=== PATIENT | female | born 1935 | race Caucasian/White ===

== ENCOUNTER → 2017-03-30 14:45 | Outpatient (CLI) | payer MEDICARE, OTHER ==
[2015-09-24 14:32] VITALS: BMI 22.5
[~2017-03-30 14:45] MED LIST: DIOVAN80 MG PO; NAPROSYN500 MG PO; NEXIUM20 MG PO; PREDNISONE20 MG PO; ZOCOR10 MG PO
== END | disposition home or self-care (01) ==
LOC: D.MRI 14:45
DX: M54.2 Cervicalgia (principal); M79.602 Pain in left arm

== ENCOUNTER → 2017-08-18 19:30 | Outpatient (CLI) | payer MEDICARE, OTHER ==
[2015-09-24 14:32] VITALS: BMI 22.5
== END | disposition home or self-care (01) ==
LOC: D.MAMMO 11:15
DX: Z12.31 Encounter for screening mammogram for malignant neoplasm of breast (principal)

== ENCOUNTER 2017-11-19 11:51 | Inpatient (IN) | payer MEDICARE, OTHER ==
[~2017-11-19] VITALS: Ht 160 cm; Wt 56.7 kg
[2017-11-19] VITALS (7 sets, daily range): BP systolic 137–155; BP diastolic 68–87
--- NOTE | ~2017-11-19 | MORECARE ---
CASE MANAGEMENT DISCHARGE SUMMARY PATIENT: CLARITA HENDERSON UNIT: [id number] ADM DATE: 11/19/17 AGE: 82 : 31 SEX: F ROOM/BED: D.2231 AUTHOR: CASE, HOME HEALTH RN PHYSICIAN: REFERRING PHYSICIAN: BRODY HENDERSON MD DATE OF SERVICE: 11/19/17 Discharge Plan Patient Name: CLARITA HENDERSON Facility: [facility]:[place] : 1935 Planned Disposition: Home with Home Health Anticipated Discharge Date: Discharge Date: Expected LOS: Initial Reviewer: [email or web address] Initial Review Date: 11/19/2017 Generated: 11/24/17 2:06 pm Coverage Notice Reviewer: [email or web address] Daria Tripathi Notice Issued Date-Time: 11/24/2017 13:00 Notice Type: IM Discharge Notice Notice Delivered To: Patient Relationship to Patient: [employer] Name: Delivery Method: HAND - Hand Delivered Emily Days: Prior Verbal Notification: Recipient Understood Notice: Yes Recipient Signature: Yes Med Rec Note Co-signed by Attending: Coverage Notice Comment: Reviewer: [email or web address] Daria Tripathi Notice Issued Date-Time: 11/24/2017 13:05 Notice Type: Patient Choice Letter Notice Delivered To: Patient Relationship to Patient: [employer] Name: FERNANDO Delivery Method: - Emily Days: Prior Verbal Notification: Recipient Understood Notice: Recipient Signature: Med Rec Note Co-signed by Attending: Coverage Notice Comment: Patient Name: CLARITA HENDERSON Page [phone] All edits/amendments must be made on the electronic document DICTATION DATE: 11/24/17 1306 SUGAR REPROCESS OPERATOR HEAD: 11/24/17 1306 RPT#: [id number] DC DATE: STATUS: ADM IN [facility] [address] [place] [address] END OF REPORT
[2017-11-19 13:42] LABS: BASOPHILS 0.2 % (0-2); EOSINOPHILS 0.2 % (0-7); HEMATOCRIT 40.5 % (36.0-48.0); HEMOGLOBIN 13.3 g/dL (12-16); IMMATURE GRANULOCYTES 0.3 % (0-5); MCH 29.2 pg (26.0-34.0); MCHC 32.8 g/dL (31.0-37.0); MEAN PLATELET VOLUME 10.9 fL (7.4-10.4); MONOCYTES 16.6 % (2-11); NEUTROPHILS 59.7 % (40-80); RBC 4.55 10x6/uL (4.00-5.40); RDW 13.6 % (11.5-14.5); WBC 6.2 10x3/uL (4.8-10.8)
[2017-11-19 13:49] LABS: PLATELET COUNT 134 10x3/uL (130-400)
[2017-11-19 13:56] LABS: ALBUMIN 3.8 g/dL (3.4-5.0); ALKALINE PHOSPHATASE 60 U/L (46-116); ALT (SGPT) 16 U/L (10-68); BILIRUBIN - TOTAL 0.39 mg/dL (0.2-1.3); CALC OSMOLALITY 272 mosm/kg (275-300); CALCIUM 9.1 mg/dL (8.5-10.1); CARBON DIOXIDE 25.7 mmol/L (21.0-32.0); CHLORIDE - SERUM 100 mmol/L (98-107); CREATININE - SERUM 0.8 mg/dL (0.6-1.3); GLUCOSE 109 mg/dL (74-106); POTASSIUM - SERUM 4.3 mmol/L (3.5-5.1); PROTEIN - SERUM 7.4 g/dL (6.4-8.2); SODIUM 135 mmol/L (136-145); UREA NITROGEN 17 mg/dL (7-18); eGFR NON AFRICAN AMERICAN 72 mL/min (90-120)
[2017-11-19 14:07] LABS: CKMB 3.2 U/L (0.0-3.6); CREATINE KINASE 347 UL (21-215); PRO BNP 533 pg/mL (0-450)
[2017-11-19 14:11] LABS: C-REACTIVE PROTEIN < 0.2 mg/dL (0.0-0.9); TROPONIN-I < 0.017 ng/mL (0.000-0.060)
[2017-11-19 14:36] LABS: APPEARANCE CLEAR (CLEAR); BILIRUBIN NEGATIVE (NEGATIVE); COLOR YELLOW (YELLOW); GLUCOSE NEGATIVE (NEGATIVE); KETONE SMALL mg/dL (NEGATIVE); NITRITE NEGATIVE (NEGATIVE); PROTEIN 1+ mg/dL (NEGATIVE); SPECIFIC GRAVITY 1.015 (1.005-1.020); UROBILINOGEN NORMAL (NORMAL)
[2017-11-19 14:37] LABS: BACTERIA FEW /hpf (NONE SEEN); EPITHELIAL CELLS 0-5 /hpf (0-5); WHITE CELLS - URINE 0-5 /hpf (0-5)
[2017-11-19 18:26] LABS: THYROID STIMULATING HORMONE 0.42 uIU/mL (0.36-3.74)
[2017-11-20] VITALS (7 sets, daily range): BP systolic 116–139; BP diastolic 55–70; BMI 22.1
[2017-11-20 11:40] LABS: HEMATOCRIT 36.2 % (36.0-48.0); HEMOGLOBIN 12.2 g/dL (12-16); LYMPHOCYTES 32.2 % (15-50); MCH 29.7 pg (26.0-34.0); MCHC 33.7 g/dL (31.0-37.0); MCV 88.1 fL (80.0-100.0); MEAN PLATELET VOLUME 9.4 fL (7.4-10.4); NEUTROPHILS 52.1 % (40-80); PLATELET COUNT 253 10x3/uL (130-400); RBC 4.11 10x6/uL (4.00-5.40); RDW 13.6 % (11.5-14.5); WBC 4.7 10x3/uL (4.8-10.8)
[2017-11-20 12:05] LABS: ALBUMIN 3.2 g/dL (3.4-5.0); BILIRUBIN - TOTAL 0.26 mg/dL (0.2-1.3); CALCIUM 8.6 mg/dL (8.5-10.1); CARBON DIOXIDE 28.3 mmol/L (21.0-32.0); CREATININE - SERUM 0.8 mg/dL (0.6-1.3); PROTEIN - SERUM 6.9 g/dL (6.4-8.2)
[2017-11-20 12:06] LABS: ANION GAP 9.3 mmol/L (8-16); POTASSIUM - SERUM 3.6 mmol/L (3.5-5.1)
[2017-11-20 16:56] LABS: ERYTHROCYTE SEDIMENTATION RATE 11 mm/hr (0-30)
[2017-11-21 04:08] VITALS: BP 115/59
[2017-11-21 06:33] LABS: BASOPHILS 0.2 % (0-2); EOSINOPHILS 0 % (0-7); HEMATOCRIT 35.5 % (36.0-48.0); HEMOGLOBIN 11.5 g/dL (12-16); LYMPHOCYTES 22.2 % (15-50); MCH 28.4 pg (26.0-34.0); MCHC 32.4 g/dL (31.0-37.0); MCV 87.7 fL (80.0-100.0); MONOCYTES 5.8 % (2-11); NEUTROPHILS 71.8 % (40-80); PLATELET COUNT 297 10x3/uL (130-400); RBC 4.05 10x6/uL (4.00-5.40); RDW 13.6 % (11.5-14.5); WBC 4.1 10x3/uL (4.8-10.8)
[2017-11-21 07:07] LABS: ANION GAP 11.1 mmol/L (8-16); BILIRUBIN - TOTAL 0.24 mg/dL (0.2-1.3); CALCIUM 8.3 mg/dL (8.5-10.1); CARBON DIOXIDE 27.2 mmol/L (21.0-32.0); CREATININE - SERUM 0.8 mg/dL (0.6-1.3); POTASSIUM - SERUM 4.3 mmol/L (3.5-5.1); PROTEIN - SERUM 6.2 g/dL (6.4-8.2)
[2017-11-21 08:48] VITALS: BP 117/48
[2017-11-21 12:58] VITALS: BP 153/81
[2017-11-21 13:32] VITALS: Ht 160 cm; Wt 56.7 kg
[2017-11-21 16:27] VITALS: BP 140/71
[2017-11-21 21:32] VITALS: BP 120/60
[2017-11-22 04:13] VITALS: BP 128/68
[2017-11-22 06:27] LABS: BASOPHILS 0.3 % (0-2); EOSINOPHILS 2.8 % (0-7); HEMATOCRIT 40.2 % (36.0-48.0); HEMOGLOBIN 13.3 g/dL (12-16); IMMATURE GRANULOCYTES 0.2 % (0-5); LYMPHOCYTES 41.3 % (15-50); MCH 28.9 pg (26.0-34.0); MCHC 33.1 g/dL (31.0-37.0); MCV 87.2 fL (80.0-100.0); MEAN PLATELET VOLUME 10.5 fL (7.4-10.4); MONOCYTES 9.8 % (2-11); NEUTROPHILS 45.6 % (40-80); PLATELET COUNT 283 10x3/uL (130-400); RBC 4.61 10x6/uL (4.00-5.40); RDW 13.9 % (11.5-14.5)
[2017-11-22 06:31] LABS: WBC 6.3 10x3/uL (4.8-10.8)
[2017-11-22 06:38] LABS: ALBUMIN 3.1 g/dL (3.4-5.0); ALKALINE PHOSPHATASE 57 U/L (46-116); BILIRUBIN - TOTAL 0.31 mg/dL (0.2-1.3); CALC OSMOLALITY 277 mosm/kg (275-300); CALCIUM 8.6 mg/dL (8.5-10.1); CARBON DIOXIDE 22.1 mmol/L (21.0-32.0); CHLORIDE - SERUM 104 mmol/L (98-107); CREATININE - SERUM 0.7 mg/dL (0.6-1.3); GLUCOSE 80 mg/dL (74-106); POTASSIUM - SERUM 4.5 mmol/L (3.5-5.1); PROTEIN - SERUM 6.6 g/dL (6.4-8.2); SODIUM 138 mmol/L (136-145); UREA NITROGEN 22 mg/dL (7-18); eGFR NON AFRICAN AMERICAN 84 mL/min (90-120)
[2017-11-22 06:40] LABS: ALT (SGPT) 31 U/L (10-68)
[2017-11-22 09:28] VITALS: BP 124/62
[2017-11-22 16:50] VITALS: BP 132/65
[2017-11-22 21:19] VITALS: BP 141/76
[2017-11-23] VITALS (7 sets, daily range): BP systolic 139–158; BP diastolic 68–79
[2017-11-23 07:02] LABS: BASOPHILS 0.4 % (0-2); EOSINOPHILS 2.4 % (0-7); HEMATOCRIT 39.2 % (36.0-48.0); IMMATURE GRANULOCYTES 0.4 % (0-5); MCH 29.1 pg (26.0-34.0); MCHC 33.2 g/dL (31.0-37.0); MCV 87.7 fL (80.0-100.0); MONOCYTES 10.4 % (2-11); NEUTROPHILS 53.4 % (40-80); RBC 4.47 10x6/uL (4.00-5.40); WBC 5.5 10x3/uL (4.8-10.8)
[2017-11-23 07:03] LABS: PLATELET COUNT 359 10x3/uL (130-400)
[2017-11-23 07:22] LABS: ALBUMIN 3.1 g/dL (3.4-5.0); ANION GAP 11.6 mmol/L (8-16); BILIRUBIN - TOTAL 0.36 mg/dL (0.2-1.3); CALCIUM 8.7 mg/dL (8.5-10.1); CARBON DIOXIDE 27.5 mmol/L (21.0-32.0); CREATININE - SERUM 0.8 mg/dL (0.6-1.3); POTASSIUM - SERUM 4.1 mmol/L (3.5-5.1); PROTEIN - SERUM 6.3 g/dL (6.4-8.2)
[2017-11-24 04:00] VITALS: BP 112/80; BP 128/87
[2017-11-24 06:29] LABS: BASOPHILS 0.2 % (0-2); EOSINOPHILS 0.2 % (0-7); HEMATOCRIT 35.4 % (36.0-48.0); HEMOGLOBIN 11.8 g/dL (12-16); IMMATURE GRANULOCYTES 0.2 % (0-5); LYMPHOCYTES 23.6 % (15-50); MCH 29.1 pg (26.0-34.0); MCHC 33.3 g/dL (31.0-37.0); MCV 87.2 fL (80.0-100.0); MEAN PLATELET VOLUME 9.8 fL (7.4-10.4); MONOCYTES 11.6 % (2-11); NEUTROPHILS 64.2 % (40-80); PLATELET COUNT 357 10x3/uL (130-400); RBC 4.06 10x6/uL (4.00-5.40); WBC 5.8 10x3/uL (4.8-10.8)
[2017-11-24 06:47] LABS: ANION GAP 11.3 mmol/L (8-16); CALCIUM 8.8 mg/dL (8.5-10.1); CARBON DIOXIDE 25.4 mmol/L (21.0-32.0); CREATININE - SERUM 0.8 mg/dL (0.6-1.3); POTASSIUM - SERUM 3.7 mmol/L (3.5-5.1)
[2017-11-24 09:00] VITALS: BP 137/83
[2017-11-24 10:21] LABS: F. TULARENSIS - IGG Negative (()); F. TULARENSIS - IGM Negative (())
[2017-11-24] MEDS ORDERED: PREDNISONE10 MG PO (11:54)
[2017-11-24 12:17] VITALS: BP 124/69
[2017-11-24 13:19] LABS: EHRLICHIA CHAFF IGG Negative (Neg:<1:64); EHRLICHIA CHAFF IGM Negative (Neg:<1:20); HGE IGG TITER Negative (Neg:<1:64); HGE IGM TITER Negative (Neg:<1:20)
[2017-11-24 16:14] LABS: RMSF IGM 0.32 index (0.00-0.89)
== END 2017-11-24 14:05 | disposition home health service (06) | DRG 547 ==
LOC: D.ER 11:51 → D.EDHOLD 18:25 → D.MS 18:25
PROVIDERS: Emergency Medicine; Family Medicine
DX: M31.6 Other giant cell arteritis (principal); R27.0 Ataxia, unspecified; M47.892 Other spondylosis, cervical region; R79.89 Other specified abnormal findings of blood chemistry; W06.XXXA Fall from bed, initial encounter

== ENCOUNTER 2017-11-30 17:21 | Observation (INO) | payer MEDICARE, OTHER ==
[~2017-11-30] VITALS: Ht 160 cm; Wt 56.7 kg
[~2017-11-30 17:21] MED LIST changes: +PREDNISONE10 MG PO
[2017-11-30 17:41] LABS: APPEARANCE CLEAR (CLEAR); BILIRUBIN NEGATIVE (NEGATIVE); COLOR YELLOW (YELLOW); GLUCOSE NEGATIVE (NEGATIVE); KETONE NEGATIVE (NEGATIVE); NITRITE NEGATIVE (NEGATIVE); PROTEIN NEGATIVE (NEGATIVE); SPECIFIC GRAVITY 1.015 (1.005-1.020); UROBILINOGEN NORMAL (NORMAL)
[2017-11-30 17:44] LABS: BACTERIA FEW /hpf (NONE SEEN); EPITHELIAL CELLS 0-5 /hpf (0-5); RED CELLS - URINE 0-5 /hpf (0-5)
[2017-11-30 18:22] LABS: BASOPHILS 0.4 % (0-2); EOSINOPHILS 3.9 % (0-7); HEMATOCRIT 37.4 % (36.0-48.0); HEMOGLOBIN 12.3 g/dL (12-16); IMMATURE GRANULOCYTES 0.2 % (0-5); LYMPHOCYTES 32.1 % (15-50); MCH 29.6 pg (26.0-34.0); MCHC 32.9 g/dL (31.0-37.0); MCV 89.9 fL (80.0-100.0); MEAN PLATELET VOLUME 9.7 fL (7.4-10.4); MONOCYTES 16.4 % (2-11); PLATELET COUNT 327 10x3/uL (130-400); RBC 4.16 10x6/uL (4.00-5.40); RDW 14.4 % (11.5-14.5); WBC 4.6 10x3/uL (4.8-10.8)
[2017-11-30 18:34] LABS: D-DIMER-QUANTITATIVE 0.9 ug/mLFEU (0.20-0.54)
[2017-11-30 18:40] LABS: INR 0.87 (0.85-1.17); PROTIME 11.5 SECONDS (11.6-15.0)
[2017-11-30 18:45] LABS: ALBUMIN 3.5 g/dL (3.4-5.0); ALKALINE PHOSPHATASE 62 U/L (46-116); ALT (SGPT) 22 U/L (10-68); BILIRUBIN - TOTAL 0.17 mg/dL (0.2-1.3); CALC OSMOLALITY 284 mosm/kg (275-300); CALCIUM 8.9 mg/dL (8.5-10.1); CARBON DIOXIDE 27.9 mmol/L (21.0-32.0); CHLORIDE - SERUM 104 mmol/L (98-107); CREATININE - SERUM 0.9 mg/dL (0.6-1.3); GLUCOSE 114 mg/dL (74-106); POTASSIUM - SERUM 3.7 mmol/L (3.5-5.1); SODIUM 141 mmol/L (136-145); UREA NITROGEN 21 mg/dL (7-18); eGFR NON AFRICAN AMERICAN 63 mL/min (90-120)
[2017-11-30 18:56] LABS: CKMB 1.1 U/L (0.0-3.6); CREATINE KINASE 39 UL (21-215); MAGNESIUM - SERUM 2.3 mg/dL (1.8-2.4); TROPONIN-I < 0.017 ng/mL (0.000-0.060)
[2017-11-30 19:30] VITALS: BP 181/86
[2017-11-30 20:30] VITALS: BP 149/79
[2017-11-30 21:30] VITALS: BP 130/72
[2017-11-30 22:30] VITALS: BP 141/75
[2017-12-01] VITALS (7 sets, daily range): BP systolic 102–137; BP diastolic 52–78; BMI 22.1
[2017-12-01] MEDS ORDERED: ACETAMINOPHEN325 MG PO (14:19)
[2017-12-01] MEDS ORDERED: ESGIC TABLET1 TAB PO (14:20)
[2017-12-01] MEDS ORDERED: BACLOFEN10 MG PO (14:21)
[2017-12-02 02:11] VITALS: BP 124/72
[2017-12-02 05:49] LABS: BASOPHILS 0.4 % (0-2); EOSINOPHILS 3.3 % (0-7); HEMOGLOBIN 11.9 g/dL (12-16); IMMATURE GRANULOCYTES 0.2 % (0-5); LYMPHOCYTES 27.4 % (15-50); MCH 28.8 pg (26.0-34.0); MCHC 32.2 g/dL (31.0-37.0); MCV 89.6 fL (80.0-100.0); MEAN PLATELET VOLUME 10.2 fL (7.4-10.4); MONOCYTES 13.3 % (2-11); NEUTROPHILS 55.4 % (40-80); PLATELET COUNT 291 10x3/uL (130-400); RBC 4.13 10x6/uL (4.00-5.40); RDW 14.4 % (11.5-14.5); WBC 5.1 10x3/uL (4.8-10.8)
[2017-12-02 06:22] LABS: ALBUMIN 3.1 g/dL (3.4-5.0); ANION GAP 11.5 mmol/L (8-16); BILIRUBIN - TOTAL 0.28 mg/dL (0.2-1.3); CALCIUM 8.4 mg/dL (8.5-10.1); CARBON DIOXIDE 25.6 mmol/L (21.0-32.0); CHOL - HDL RATIO 3.8 ratio (2.3-4.1); CREATININE - SERUM 0.8 mg/dL (0.6-1.3); LDL-HDL RATIO 2.2 ratio (1.5-3.5); POTASSIUM - SERUM 4.1 mmol/L (3.5-5.1); PROTEIN - SERUM 6.2 g/dL (6.4-8.2)
[2017-12-02 06:28] VITALS: BP 128/68
[2017-12-02 07:40] VITALS: BP 151/75
[2017-12-02 10:57] VITALS: Ht 160 cm; Wt 56.7 kg
[2017-12-02 11:55] VITALS: BP 139/76
[2017-12-02] MEDS ORDERED: FAMVIR500 MG PO (12:04)
[2017-12-02] MEDS ORDERED: ECOTRIN325 MG PO (12:04)
[2017-12-02] MEDS ORDERED: OMNICEF300 MG PO (12:05)
== END 2017-12-02 15:55 | disposition home or self-care (01) ==
LOC: D.ER 17:21 → D.EDHOLD 20:30 → OBSVTIME 20:30 → D.M2 12-01 12:59
PROVIDERS: Family Medicine; Family Medicine Adult Medicine
DX: G45.9 Transient cerebral ischemic attack, unspecified (principal); G81.91 Hemiplegia, unspecified affecting right dominant side; B02.9 Zoster without complications; N39.0 Urinary tract infection, site not specified; K21.9 Gastro-esophageal reflux disease without esophagitis; R94.31 Abnormal electrocardiogram [ECG] [EKG]; R53.1 Weakness; R47.81 Slurred speech

== ENCOUNTER 2018-01-01 19:14 | Emergency (ER) | payer MEDICARE, OTHER ==
[~2018-01-01] VITALS: Ht 160 cm; Wt 55.3 kg
[~2018-01-01 19:14] MED LIST changes: +ACETAMINOPHEN325 MG PO; +BACLOFEN10 MG PO; +ECOTRIN325 MG PO; +ESGIC TABLET1 TAB PO; +FAMVIR500 MG PO; +OMNICEF300 MG PO
[2018-01-01 19:39] VITALS: Ht 160 cm; Wt 55.3 kg
[2018-01-01] MEDS ORDERED: BAYER CHEWABLE81 MG PO (19:42)
[2018-01-01] MEDS ORDERED: ACETAMINOPHEN325 MG PO (19:44)
[2018-01-01 23:37] VITALS: BP 155/80
== END 2018-01-01 23:53 | disposition other institution (70) ==
LOC: D.ER 19:14
DX: S12.090A Other displaced fracture of first cervical vertebra, initial encounter for closed fracture (principal); S12.391A Other nondisplaced fracture of fourth cervical vertebra, initial encounter for closed fracture; W18.30XA Fall on same level, unspecified, initial encounter; Y93.89 Activity, other specified; Y92.019 Unspecified place in single-family (private) house as the place of occurrence of the external cause; R51 Headache; Z86.73 Personal history of transient ischemic attack (TIA), and cerebral infarction without residual deficits

== ENCOUNTER 2018-08-31 13:15 | Emergency (ER) | payer MEDICARE, OTHER ==
[~2018-08-31] VITALS: Ht 160 cm; Wt 54.5 kg
[~2018-08-31 13:15] MED LIST changes: +BAYER CHEWABLE81 MG PO
[2018-08-31 13:19] VITALS: Ht 160 cm; Wt 54.5 kg
[2018-08-31 14:08] LABS: BASOPHILS 0.4 % (0-2); EOSINOPHILS 0.6 % (0-7); HEMATOCRIT 39.3 % (36.0-48.0); HEMOGLOBIN 12.8 g/dL (12-16); IMMATURE GRANULOCYTES 0.2 % (0-5); LYMPHOCYTES 25.6 % (15-50); MCH 29.3 pg (26.0-34.0); MCHC 32.6 g/dL (31.0-37.0); MCV 89.9 fL (80.0-100.0); MEAN PLATELET VOLUME 9.6 fL (7.4-10.4); MONOCYTES 12.9 % (2-11); NEUTROPHILS 60.3 % (40-80); PLATELET COUNT 242 10x3/uL (130-400); RBC 4.37 10x6/uL (4.00-5.40); WBC 4.7 10x3/uL (4.8-10.8)
[2018-08-31 14:26] LABS: ALBUMIN 3.7 g/dL (3.4-5.0); ALKALINE PHOSPHATASE 60 U/L (46-116); ALT (SGPT) 28 U/L (10-68); BILIRUBIN - TOTAL 0.32 mg/dL (0.2-1.3); CALC OSMOLALITY 286 mosm/kg (275-300); CALCIUM 8.7 mg/dL (8.5-10.1); CHLORIDE - SERUM 108 mmol/L (98-107); GLUCOSE 112 mg/dL (74-106); POTASSIUM - SERUM 3.8 mmol/L (3.5-5.1); PROTEIN - SERUM 7.4 g/dL (6.4-8.2); SODIUM 142 mmol/L (136-145); UREA NITROGEN 20 mg/dL (7-18); eGFR NON AFRICAN AMERICAN 56 mL/min (90-120)
[2018-08-31 14:32] LABS: CKMB 2.1 U/L (0.0-3.6); CREATINE KINASE 76 UL (21-215); MAGNESIUM - SERUM 2.2 mg/dL (1.8-2.4); THYROID STIMULATING HORMONE 0.88 uIU/mL (0.36-3.74)
[2018-08-31 14:33] LABS: TROPONIN-I < 0.017 ng/mL (0.000-0.060)
[2018-08-31 16:14] LABS: APTT 25.4 SECONDS (22.8-39.4); INR 0.89 (0.85-1.17); PROTIME 11.9 SECONDS (11.6-15.0)
[2018-08-31 16:54] VITALS: BP 151/81
== END 2018-08-31 16:56 | disposition home or self-care (01) ==
LOC: D.ER 13:15
PROVIDERS: Family Medicine
DX: M62.830 Muscle spasm of back (principal); T14.8XXA Other injury of unspecified body region, initial encounter; X58.XXXA Exposure to other specified factors, initial encounter; Y92.89 Other specified places as the place of occurrence of the external cause

== ENCOUNTER 2020-09-13 09:31 | Inpatient (IN) | payer MEDICARE, OTHER ==
[~2020-09-13] VITALS: Ht 160 cm; Wt 56.4 kg
[2020-09-13 09:45] VITALS: BP 134/77
[2020-09-13 10:15] LABS: BASOPHILS 1.7 % (0-2); EOSINOPHILS 2.6 % (0-7); HEMATOCRIT 39.1 % (36.0-48.0); HEMOGLOBIN 12.6 g/dL (12-16); LYMPHOCYTES 31.8 % (15-50); MCH 27.8 pg (26.0-34.0); MCHC 32.3 g/dL (31.0-37.0); MCV 86.3 fL (80.0-100.0); MEAN PLATELET VOLUME 8.9 fL (7.4-10.4); MONOCYTES 16.7 % (2-11); NEUTROPHILS 47.2 % (40-80); RBC 4.54 10x6/uL (4.00-5.40); RDW 15.1 % (11.5-14.5); WBC 4.8 10x3/uL (4.8-10.8)
[2020-09-13 10:19] LABS: INR 0.95 (0.85-1.17); PROTIME 11.8 SECONDS (11.6-15.0)
[2020-09-13] MEDS ORDERED: PLAVIX75 MG PO (10:19)
[2020-09-13] MEDS ORDERED: ROPINIROLE HCL0.5 MG PO (10:20)
[2020-09-13] MEDS ORDERED: TRIAMTERENE-HC1 EAC3 (10:20)
[2020-09-13] MEDS ORDERED: PROTONIX FOR OR40 MG PT (10:20)
[2020-09-13 10:22] LABS: PLATELET COUNT 309 10x3/uL (130-400)
[2020-09-13 10:47] LABS: CALC OSMOLALITY 283 mosm/kg (275-300); CALCIUM 9.6 mg/dL (8.5-10.1); CHLORIDE - SERUM 105 mmol/L (98-107); GLUCOSE 97 mg/dL (74-106); POTASSIUM - SERUM 4.4 mmol/L (3.5-5.1); SODIUM 141 mmol/L (136-145); UREA NITROGEN 20 mg/dL (7-18); eGFR NON AFRICAN AMERICAN 55 mL/min (90-120)
[2020-09-13 11:04] LABS: ALBUMIN 3.6 g/dL (3.4-5.0); ALKALINE PHOSPHATASE 59 U/L (30-120); ALT (SGPT) 19 U/L (10-68); BILIRUBIN - TOTAL 0.33 mg/dL (0.2-1.3); CKMB 1.1 U/L (0.0-3.6); CREATINE KINASE 48 UL (21-215); MAGNESIUM - SERUM 2.4 mg/dL (1.8-2.4); PROTEIN - SERUM 7.3 g/dL (6.4-8.2)
[2020-09-13 11:05] LABS: TROPONIN-I < 0.017 ng/mL (0.000-0.060)
[2020-09-13 13:09] LABS: CKMB 1.2 U/L (0.0-3.6); CREATINE KINASE 50 UL (21-215); TROPONIN-I < 0.017 ng/mL (0.000-0.060)
[2020-09-13 14:43] VITALS: BP 134/77; Ht 160 cm; Wt 56.4 kg
[2020-09-13 15:56] VITALS: BP 122/52
[2020-09-13 18:44] LABS: CKMB 1.1 U/L (0.0-3.6); CREATINE KINASE 45 UL (21-215); TROPONIN-I < 0.017 ng/mL (0.000-0.060)
--- NOTE | 2020-09-13 19:15 | NUR ---
RECEIVED REPORT, WILL ASSUME CARE OF PT, WATCHING TV, DENIES ANY NEEDS AT THIS TIME, BED IS LOW, SRX2, CALL LIGHT IN REACH, WILL CONTINUE PLAN OF CARE
[2020-09-13 20:33] VITALS: BP 115/55
[2020-09-14 00:34] VITALS: BP 139/65
[2020-09-14 01:10] LABS: CKMB 0.6 U/L (0.0-3.6); CREATINE KINASE 42 UL (21-215); TROPONIN-I < 0.017 ng/mL (0.000-0.060)
[2020-09-14 06:03] VITALS: BP 136/59
[2020-09-14 06:09] LABS: EOSINOPHILS 2.8 % (0-7); HEMATOCRIT 36.9 % (36.0-48.0); HEMOGLOBIN 12.1 g/dL (12-16); LYMPHOCYTES 37.7 % (15-50); MCH 28.3 pg (26.0-34.0); MCHC 32.9 g/dL (31.0-37.0); MCV 86.1 fL (80.0-100.0); MEAN PLATELET VOLUME 8.5 fL (7.4-10.4); MONOCYTES 14.8 % (2-11); NEUTROPHILS 43.7 % (40-80); PLATELET COUNT 260 10x3/uL (130-400); RBC 4.29 10x6/uL (4.00-5.40); RDW 14.6 % (11.5-14.5); WBC 4.4 10x3/uL (4.8-10.8)
[2020-09-14 06:36] LABS: ALBUMIN 3.4 g/dL (3.4-5.0); ALKALINE PHOSPHATASE 55 U/L (30-120); ALT (SGPT) 17 U/L (10-68); BILIRUBIN - TOTAL 0.29 mg/dL (0.2-1.3); CALC OSMOLALITY 277 mosm/kg (275-300); CALCIUM 8.9 mg/dL (8.5-10.1); CARBON DIOXIDE 26.1 mmol/L (21.0-32.0); CHLORIDE - SERUM 103 mmol/L (98-107); CKMB 0.9 U/L (0.0-3.6); CREATINE KINASE 43 UL (21-215); CREATININE - SERUM 1.1 mg/dL (0.6-1.3); GLUCOSE 97 mg/dL (74-106); MAGNESIUM - SERUM 2.1 mg/dL (1.8-2.4); POTASSIUM - SERUM 4.4 mmol/L (3.5-5.1); SODIUM 137 mmol/L (136-145); TROPONIN-I < 0.017 ng/mL (0.000-0.060); UREA NITROGEN 25 mg/dL (7-18); eGFR NON AFRICAN AMERICAN 50 mL/min (90-120)
--- NOTE | 2020-09-14 07:20 | NUR ---
RECIEVE REPORT. ALERT AND ORIENTED X4. SITTING UP IN BED. SINUS RHYTHM 91 ON TELEMETRY. CONTINUE PLAN OF CARE AND SAFETY PRECAUTIONS.
[2020-09-14 08:00] VITALS: BP 146/76
[2020-09-14 12:00] VITALS: BP 103/58
[2020-09-14 16:00] VITALS: BP 117/66
--- NOTE | 2020-09-14 16:11 | NUR ---
ALERT AND ORIENTED X4. SITTING UP IN BED WATCHING TV. SINUS RHYTHM ON TELEMETRY. DENIES ANY NEEDS. CONTINUE PLAN OF CARE AND SAFETY PRECAUTIONS.
--- NOTE | 2020-09-14 19:30 | NUR ---
RECEIVED REPORT, WILL ASSUME CARE OF PT, SITTING IN CHAIR, DENIES ANY NEEDS AT THIS TIME, CALL LIGHT IN REACH, WILL CONTINUE PLAN OF CARE
[2020-09-14 21:00] VITALS: BP 142/48
[2020-09-15] VITALS (7 sets, daily range): BP systolic 121–145; BP diastolic 64–76
[2020-09-15 06:46] LABS: BASOPHILS 0.7 % (0-2); EOSINOPHILS 2.2 % (0-7); HEMATOCRIT 38.7 % (36.0-48.0); HEMOGLOBIN 12.8 g/dL (12-16); LYMPHOCYTES 33.6 % (15-50); MCH 28.2 pg (26.0-34.0); MCHC 32.9 g/dL (31.0-37.0); MCV 85.7 fL (80.0-100.0); MEAN PLATELET VOLUME 8.8 fL (7.4-10.4); MONOCYTES 13.3 % (2-11); NEUTROPHILS 50.2 % (40-80); PLATELET COUNT 288 10x3/uL (130-400); RBC 4.52 10x6/uL (4.00-5.40); RDW 14.5 % (11.5-14.5); WBC 4.5 10x3/uL (4.8-10.8)
[2020-09-15 07:52] LABS: ALBUMIN 3.5 g/dL (3.4-5.0); ANION GAP 17.3 mmol/L (8-16); BILIRUBIN - TOTAL 0.21 mg/dL (0.2-1.3); CALCIUM 9.9 mg/dL (8.5-10.1); CARBON DIOXIDE 24.2 mmol/L (21.0-32.0); MAGNESIUM - SERUM 2.1 mg/dL (1.8-2.4); POTASSIUM - SERUM 4.5 mmol/L (3.5-5.1); PROTEIN - SERUM 7.1 g/dL (6.4-8.2)
--- NOTE | 2020-09-15 10:32 | NUR ---
IV SITED TO LEFT HAND WITH 22 G X 1 STICK PER THIS NURSE. RIGHT FA IV REMOVED WITH CATH TIP INTACT.
--- NOTE | 2020-09-15 10:53 | NUR ---
COMPLETE BED LINEN CHANGED AND DATED.
--- NOTE | 2020-09-15 10:58 | NUR ---
I CALLED AND SPOKE TO ML IN THE [employer] WHO STATES THAT SHE IS HAVING AN ECHO, NOT HEART CATH.
--- NOTE | 2020-09-15 17:45 | NUR ---
NO COMPLAINTS AT THIS TIME, VISITING WITH FEMALE MEMBER IN ROOM.
--- NOTE | 2020-09-15 19:48 | NUR ---
RECIEVED UP IN BED WITH EYES OPEN AND TV ON. A/O X4. UP WITH ASSIST. DENIES ANY NEEDS AT THIS TIME.
[2020-09-16 04:00] VITALS: BP 130/66
[2020-09-16 05:15] LABS: BASOPHILS 1.1 % (0-2); EOSINOPHILS 1.8 % (0-7); HEMATOCRIT 37.8 % (36.0-48.0); HEMOGLOBIN 12.4 g/dL (12-16); LYMPHOCYTES 38.3 % (15-50); MCHC 32.9 g/dL (31.0-37.0); MCV 85.1 fL (80.0-100.0); MEAN PLATELET VOLUME 8.6 fL (7.4-10.4); MONOCYTES 12.8 % (2-11); PLATELET COUNT 279 10x3/uL (130-400); RBC 4.44 10x6/uL (4.00-5.40); RDW 14.4 % (11.5-14.5)
[2020-09-16 05:36] LABS: ALBUMIN 3.3 g/dL (3.4-5.0); ANION GAP 12.9 mmol/L (8-16); BILIRUBIN - TOTAL 0.19 mg/dL (0.2-1.3); CARBON DIOXIDE 23.8 mmol/L (21.0-32.0); CREATININE - SERUM 1.2 mg/dL (0.6-1.3); MAGNESIUM - SERUM 2.1 mg/dL (1.8-2.4); POTASSIUM - SERUM 4.7 mmol/L (3.5-5.1); PROTEIN - SERUM 6.8 g/dL (6.4-8.2)
--- NOTE | 2020-09-16 06:50 | NUR ---
RECIEVED BEDSIDE REPORT PATIENT SITTING UP IN CHAIR, NO CURRENT PAIN OR DISTRESS VOICED. RESP EVEN AND UNLABORED. NO O2 IN US3. IV TO LEFT HAND SALINE LOCKED.
[2020-09-16 08:00] VITALS: BP 120/64
--- NOTE | 2020-09-16 10:11 | NUR ---
PATIENT SITTING UP IN BED. NO CURRENT PAIN OR DISTRESS VERBALIZED. RESP EVEN AND UNLABORED. O2 AT 99% ROOM AIR. LUNG SOUNDS CLEAR. HEART SOUNDS REGULAR RATE AND RYTHYM. IV TO LEFT HAND PATENT AND SALINE LOCKED. 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 SCDS NOT WORN. PATIENT ON LOVENOX.
[2020-09-16 16:00] VITALS: BP 122/72
[2020-09-16 21:04] VITALS: BP 130/76
[2020-09-17 00:14] VITALS: BP 128/79
--- NOTE | 2020-09-17 01:58 | NUR ---
REPORT RECEIVED. CARE RESUMED BY THIS NURSE AT 2230. PT A&O, ASLEEP IN BED. NO S/S OF DISTRESS OBSERVED. RR EVEN & UNLABORED ON RA. IV TO L HAND PATENT, SL, SWAB CAPS IN USE. SR 73 ON TELE. BED LOCKED AND LOWERED, CL IN REACH. ASSESSMENT COMPLETE. WILL CONT POC.
[2020-09-17 04:17] VITALS: BP 131/74
[2020-09-17 06:19] LABS: BASOPHILS 1.1 % (0-2); EOSINOPHILS 1.8 % (0-7); HEMATOCRIT 37.8 % (36.0-48.0); HEMOGLOBIN 12.4 g/dL (12-16); LYMPHOCYTES 45.2 % (15-50); MCH 28.1 pg (26.0-34.0); MCHC 32.7 g/dL (31.0-37.0); MCV 86.1 fL (80.0-100.0); MEAN PLATELET VOLUME 8.8 fL (7.4-10.4); MONOCYTES 12.2 % (2-11); NEUTROPHILS 39.7 % (40-80); PLATELET COUNT 290 10x3/uL (130-400); RDW 14.4 % (11.5-14.5); WBC 4.2 10x3/uL (4.8-10.8)
[2020-09-17 06:33] LABS: ALBUMIN 3.5 g/dL (3.4-5.0); ANION GAP 12.6 mmol/L (8-16); BILIRUBIN - TOTAL 0.35 mg/dL (0.2-1.3); CALCIUM 9.3 mg/dL (8.5-10.1); CARBON DIOXIDE 26.7 mmol/L (21.0-32.0); MAGNESIUM - SERUM 2.2 mg/dL (1.8-2.4); POTASSIUM - SERUM 4.3 mmol/L (3.5-5.1); PROTEIN - SERUM 7.1 g/dL (6.4-8.2)
--- NOTE | 2020-09-17 07:30 | NUR ---
Lying in bed, awake/alert/oriented, T/R self ad aida, cont of B/B with BRPs per self ad aida, c/o sharp pressure chest pain rated 5/10, medicated as ordered (see MAR), call light/phone/water within reach, no s/s of acute distress observed.
[2020-09-17 08:10] VITALS: BP 143/74
[2020-09-17 10:50] VITALS: BP 114/63
--- NOTE | 2020-09-17 11:11 | NUR ---
PATIENT WALKED 250 FEET WITH CGA USING CANE.
[2020-09-17] MEDS ORDERED: NITRO-DUR0.1 MG TRANSDERM (11:25)
[2020-09-17] MEDS ORDERED: TORADOL10 MG PO (11:25)
[2020-09-17] MEDS ORDERED: LOPRESSOR25 MG PO (11:25)
--- NOTE | 2020-09-17 15:10 | NUR ---
Provided written/verbal discharge instructions to which pt voiced understanding.
--- NOTE | 2020-09-17 15:25 | NUR ---
DC'd IV access and cardiac telemetry monitoring at this time.
--- NOTE | 2020-09-17 16:15 | NUR ---
DC'd home to self care in stable condition via w/c accompanied by hospital staff and family member, no s/s of acute distress observed.
== END 2020-09-17 16:15 | disposition home or self-care (01) | DRG 313 ==
LOC: D.ER 09:31 → D.M2 11:24 → OBSVTIME 11:24 → D.M2 09-14 14:19
PROVIDERS: Family Medicine; ADMIT Family Medicine; ATTEND Family Medicine
DX: R07.89 Other chest pain (principal); I10 Essential (primary) hypertension; E78.5 Hyperlipidemia, unspecified; K21.9 Gastro-esophageal reflux disease without esophagitis; I35.0 Nonrheumatic aortic (valve) stenosis